=== PATIENT | male | born 1975 | race Caucasian/White ===

== ENCOUNTER 2018-06-26 22:56 | Inpatient (IN) | payer MEDICAID ==
[~2018-06-26] VITALS: Ht 193 cm; Wt 91.3 kg
--- NOTE | ~2018-06-26 | OP ---
PATIENT NAME: NIMCO BAUMAN MEDICAL RECORD: [id number] :77 LOCATION:D.M2 D.2103 ADMISSION DATE:06/27/18 SURGEON: ARTUR AGUSTIN MD DATE OF OPERATION: 06/27/2018 PREOPERATIVE DIAGNOSES: 1. Right upper extremity abscess. 2. End-stage renal disease. 3. Sickle cell disease. POSTOPERATIVE DIAGNOSES: 1. Right upper extremity abscess. 2. End-stage renal disease. 3. Sickle cell disease. PROCEDURE: Right upper extremity I&D. SURGEON: Artur Agustin MD REPORT OF PROCEDURE: The patient's right upper arm was prepped and draped in sterile fashion. A 5 cc of 1% lidocaine with epinephrine was infused into the surrounding tissues. A skin incision was made on the medial aspect of the arm and there was a spillage of what appeared to be infected seroma with some purulence. Once this was removed, then we irrigated out the wound thoroughly with peroxide solution and then packed the wound with the corner of a piece of gauze. We then dressed the wound with 4 x 4's and Kerlix. COMPLICATIONS: None. CONDITION: Stable. ANESTHESIA: Local. BLOOD LOSS: Minimal. Procedure done at the bedside. TRANSINT:[id number] Voice Confirmation ID: [id number] DOCUMENT ID: [id number] ARTUR AGUSTIN MD at 1110 CC: [id number] DICTATION DATE: 06/27/18 1117 ETHNOGRAPHIC MATERIALS CONSERVATOR: 06/27/18 1242 ADM IN [facility] [place] [id number] [place] [address]
[2018-06-27] VITALS (13 sets, daily range): BP systolic 108–127; BP diastolic 52–74; BMI 22.4
[2018-06-27] MEDS ORDERED: FOLIC ACID1 MG PO (01:53)
[2018-06-27] MEDS ORDERED: HYDROXYUREA500 MG PO (01:54)
[2018-06-27] MEDS ORDERED: PENICILLIN V P500 MG PO (01:56)
[2018-06-27 08:06] LABS: BASOPHILS 0.2 % (0-2); EOSINOPHILS 1.8 % (0-7); IMMATURE GRANULOCYTES 0.4 % (0-5); LYMPHOCYTES 16.2 % (15-50); MCH 33.3 pg (26.0-34.0); MCHC 36.9 g/dL (31.0-37.0); MCV 90.3 fL (80.0-100.0); MEAN PLATELET VOLUME 8.8 fL (7.4-10.4); MONOCYTES 6.2 % (2-11); NEUTROPHILS 75.2 % (40-80); PLATELET COUNT 164 10x3/uL (130-400); RDW 23.4 % (11.5-14.5); WBC 21.2 10x3/uL (4.8-10.8)
[2018-06-27 08:07] LABS: HEMOGLOBIN 4.8 g/dL (13.5-17.5)
[2018-06-27 08:08] LABS: RBC 1.44 10x6/uL (4.20-6.10)
[2018-06-27 08:12] LABS: ALBUMIN 2.4 g/dL (3.4-5.0); ANION GAP 14.1 mmol/L (8-16); BILIRUBIN - TOTAL 3.63 mg/dL (0.2-1.3); CALCIUM 7.2 mg/dL (8.5-10.1); CARBON DIOXIDE 21.3 mmol/L (21.0-32.0); POTASSIUM - SERUM 4.4 mmol/L (3.5-5.1); PROTEIN - SERUM 5.8 g/dL (6.4-8.2)
[2018-06-27 11:07] LABS: VANCOMYCIN - RANDOM 18.1 ug/mL (10.0-20.0)
[2018-06-27 12:18] LABS: % SATURATION 35 % (15-55); IRON 68 ug/dl (35-150); TOTAL IRON BIND CAPACITY 192 ug/dl (260-445); UNSAT IRON BIND CAPACITY 124 ug/dl (150-375)
[2018-06-28] VITALS (24 sets, daily range): BP systolic 104–165; BP diastolic 59–91; Ht 193 cm; Wt 91.3 kg
[2018-06-28 04:06] LABS: MCH 32.1 pg (26.0-34.0); MCHC 36.1 g/dL (31.0-37.0); MCV 88.8 fL (80.0-100.0); MEAN PLATELET VOLUME 9.3 fL (7.4-10.4); PLATELET COUNT 164 10x3/uL (130-400); WBC 16.7 10x3/uL (4.8-10.8)
[2018-06-28 04:10] LABS: RBC 1.34 10x6/uL (4.20-6.10)
[2018-06-28 04:11] LABS: HEMATOCRIT 11.9 % (42.0-54.0); HEMOGLOBIN 4.3 g/dL (13.5-17.5)
[2018-06-28 04:37] LABS: ANION GAP 18.3 mmol/L (8-16); CALCIUM 7.4 mg/dL (8.5-10.1); CARBON DIOXIDE 17.8 mmol/L (21.0-32.0); CREATININE - SERUM 7.4 mg/dL (0.6-1.3); PHOSPHOROUS 8.5 mg/dL (2.5-4.9); VANCOMYCIN - RANDOM 26.6 ug/mL (10.0-20.0)
[2018-06-28 04:46] LABS: POTASSIUM - SERUM 5.1 mmol/L (3.5-5.1)
[2018-06-28 05:06] LABS: EOSINOPHILS 2 % (0-7); LYMPHOCYTES 14 % (15-50); MONOCYTES 6 % (2-11); NEUTROPHILS 78 % (40-80); SICKLE CELLS 2+
[2018-06-28 05:12] LABS: PLATELET ESTIMATE NORMAL
[2018-06-28 09:03] LABS: % SATURATION 35 % (15-55); IRON 64 ug/dl (35-150); TOTAL IRON BIND CAPACITY 182 ug/dl (260-445); UNSAT IRON BIND CAPACITY 118 ug/dl (150-375)
[2018-06-28 09:43] LABS: FERRITIN 1349 ng/mL (3-244); LDH 700 U/L (85-227)
[2018-06-28 16:38] LABS: ANION GAP 16.4 mmol/L (8-16); CALCIUM 7.1 mg/dL (8.5-10.1); CREATININE - SERUM 8.1 mg/dL (0.6-1.3); POTASSIUM - SERUM 5.4 mmol/L (3.5-5.1)
[2018-06-29] VITALS (11 sets, daily range): BP systolic 95–160; BP diastolic 37–97
[2018-06-29 04:35] LABS: BASOPHILS 0.2 % (0-2); EOSINOPHILS 8.3 % (0-7); IMMATURE GRANULOCYTES 0.5 % (0-5); LYMPHOCYTES 17.1 % (15-50); MCH 32.3 pg (26.0-34.0); MCHC 35.9 g/dL (31.0-37.0); MEAN PLATELET VOLUME 9.3 fL (7.4-10.4); MONOCYTES 5.6 % (2-11); NEUTROPHILS 68.3 % (40-80); PLATELET COUNT 179 10x3/uL (130-400); RBC 2.01 10x6/uL (4.20-6.10); RDW 17.3 % (11.5-14.5); WBC 12.2 10x3/uL (4.8-10.8)
[2018-06-29 04:36] LABS: HEMATOCRIT 18.1 % (42.0-54.0); HEMOGLOBIN 6.5 g/dL (13.5-17.5)
[2018-06-29 05:15] LABS: ANION GAP 18.1 mmol/L (8-16); CALCIUM 7.3 mg/dL (8.5-10.1); CARBON DIOXIDE 18.2 mmol/L (21.0-32.0); CREATININE - SERUM 8.5 mg/dL (0.6-1.3); POTASSIUM - SERUM 5.3 mmol/L (3.5-5.1); VANCOMYCIN - RANDOM 23.1 ug/mL (10.0-20.0)
[2018-06-29 05:16] LABS: PHOSPHOROUS 9.5 mg/dL (2.5-4.9)
[2018-06-30 00:31] VITALS: BP 134/43
[2018-06-30 05:33] VITALS: BP 121/76
[2018-06-30 06:34] LABS: BASOPHILS 0.2 % (0-2); EOSINOPHILS 8.3 % (0-7); IMMATURE GRANULOCYTES 0.8 % (0-5); LYMPHOCYTES 20.1 % (15-50); MCHC 35.7 g/dL (31.0-37.0); MCV 89.7 fL (80.0-100.0); MEAN PLATELET VOLUME 9.4 fL (7.4-10.4); MONOCYTES 7.5 % (2-11); NEUTROPHILS 63.1 % (40-80); PLATELET COUNT 184 10x3/uL (130-400); RDW 19.2 % (11.5-14.5); WBC 9.9 10x3/uL (4.8-10.8)
[2018-06-30 06:56] LABS: HEMATOCRIT 15.7 % (42.0-54.0); HEMOGLOBIN 5.6 g/dL (13.5-17.5); RBC 1.75 10x6/uL (4.20-6.10)
[2018-06-30 07:37] LABS: ANION GAP 16.4 mmol/L (8-16); CALCIUM 7.2 mg/dL (8.5-10.1); CARBON DIOXIDE 22.8 mmol/L (21.0-32.0); CREATININE - SERUM 6.8 mg/dL (0.6-1.3); PHOSPHOROUS 6.9 mg/dL (2.5-4.9); POTASSIUM - SERUM 4.2 mmol/L (3.5-5.1); VANCOMYCIN - RANDOM 18.4 ug/mL (10.0-20.0)
[2018-06-30 07:43] VITALS: BP 144/78
[2018-06-30 11:30] VITALS: BP 149/77
[2018-06-30 15:37] VITALS: BP 153/88
[2018-06-30 16:15] LABS: PARVOVIRUS B-19 - IGG 6.7 index (0.0-0.8); PARVOVIRUS B-19 - IGM 0.2 index (0.0-0.8)
[2018-06-30 20:26] VITALS: BP 155/90
[2018-06-30 21:32] LABS: HEMATOCRIT 18.9 % (42.0-54.0); HEMOGLOBIN 6.6 g/dL (13.5-17.5)
[2018-07-01 00:14] VITALS: BP 150/85
[2018-07-01 04:13] LABS: BASOPHILS 0.6 % (0-2); EOSINOPHILS 10.2 % (0-7); IMMATURE GRANULOCYTES 1.3 % (0-5); MCH 29.7 pg (26.0-34.0); MCHC 34.7 g/dL (31.0-37.0); MEAN PLATELET VOLUME 9.3 fL (7.4-10.4); MONOCYTES 7.9 % (2-11); PLATELET COUNT 163 10x3/uL (130-400); RBC 2.02 10x6/uL (4.20-6.10); RDW 21.1 % (11.5-14.5)
[2018-07-01 04:30] VITALS: BP 143/81
[2018-07-01 04:30] LABS: ANION GAP 15.9 mmol/L (8-16); CALCIUM 7.1 mg/dL (8.5-10.1); CARBON DIOXIDE 21.6 mmol/L (21.0-32.0); CREATININE - SERUM 8.3 mg/dL (0.6-1.3); PHOSPHOROUS 7.2 mg/dL (2.5-4.9); POTASSIUM - SERUM 4.5 mmol/L (3.5-5.1)
[2018-07-01 05:33] LABS: HEMATOCRIT 17.3 % (42.0-54.0); MCV 85.6 fL (80.0-100.0)
[2018-07-01 07:46] VITALS: BP 143/81
[2018-07-01 16:00] VITALS: BP 153/73
[2018-07-01 21:01] VITALS: BP 143/64
[2018-07-02] VITALS (10 sets, daily range): BP systolic 138–183; BP diastolic 73–98
[2018-07-02 05:12] LABS: BASOPHILS 0.6 % (0-2); EOSINOPHILS 8.4 % (0-7); IMMATURE GRANULOCYTES 0.8 % (0-5); MCH 29.4 pg (26.0-34.0); MCHC 33.7 g/dL (31.0-37.0); MCV 87.4 fL (80.0-100.0); MEAN PLATELET VOLUME 9.2 fL (7.4-10.4); MONOCYTES 10.8 % (2-11); NEUTROPHILS 61.4 % (40-80); PLATELET COUNT 173 10x3/uL (130-400); RBC 2.14 10x6/uL (4.20-6.10); RDW 20.6 % (11.5-14.5); WBC 8.7 10x3/uL (4.8-10.8)
[2018-07-02 05:21] LABS: ANION GAP 12.5 mmol/L (8-16); CALCIUM 7.3 mg/dL (8.5-10.1); CARBON DIOXIDE 25.6 mmol/L (21.0-32.0); CREATININE - SERUM 6.4 mg/dL (0.6-1.3); PHOSPHOROUS 6.1 mg/dL (2.5-4.9); POTASSIUM - SERUM 4.1 mmol/L (3.5-5.1); VANCOMYCIN - RANDOM 19.1 ug/mL (10.0-20.0)
[2018-07-02 05:25] LABS: HEMOGLOBIN 6.3 g/dL (13.5-17.5)
[2018-07-02 05:26] LABS: HEMATOCRIT 18.7 % (42.0-54.0)
[2018-07-02] MEDS ORDERED: RENAGEL800 MG PO (10:52)
== END 2018-07-02 21:18 | disposition home or self-care (01) | DRG 314 ==
LOC: D.ICU 22:56 → D.M2 06-27 01:49 → D.SDCHOLD 06-30 06:41 → D.M2 06-30 06:41
PROVIDERS: Family Medicine; Internal Medicine Hematology & Oncology; Internal Medicine Nephrology
PROC: 0H9DXZZ Drainage of Right Lower Arm Skin, External Approach (ICD-10-PCS; principal; 2018-06-27)
DX: T82.7XXA Infection and inflammatory reaction due to other cardiac and vascular devices, implants and grafts, initial encounter (principal); A41.9 Sepsis, unspecified organism; N18.6 End stage renal disease; D57.00 Hb-SS disease with crisis, unspecified; I12.0 Hypertensive chronic kidney disease with stage 5 chronic kidney disease or end stage renal disease; N25.81 Secondary hyperparathyroidism of renal origin; F17.203 Nicotine dependence unspecified, with withdrawal; Y83.8 Other surgical procedures as the cause of abnormal reaction of the patient, or of later complication, without mention of misadventure at the time of the procedure; D63.1 Anemia in chronic kidney disease; E83.39 Other disorders of phosphorus metabolism; E87.5 Hyperkalemia